=== PATIENT | male | born 1975 | race African-American/Black ===

== ENCOUNTER 2023-02-23 04:39 | Day surgery (SDC) | payer OTHER ==
[2023-02-20 12:34] VITALS: BMI 25.7
[2023-02-23 09:49] VITALS: TEMP 97.8
[2023-02-23 10:28] VITALS: BP 114/67; PULSE 71; RESP 16
== END 2023-02-23 10:50 | disposition home or self-care (01) ==
LOC: JASU-ENDO 04:39
PROVIDERS: ATTEND Internal Medicine Gastroenterology
PROC: 0DJD8ZZ Inspection of Lower Intestinal Tract, Via Natural or Artificial Opening Endoscopic (ICD-10-PCS; principal; 2023-02-23 09:30)
DX: Z12.11 Encounter for screening for malignant neoplasm of colon (principal)